=== PATIENT | male | born 1985 | race Hispanic/Latino ===

== ENCOUNTER 2021-11-17 02:59 | Emergency (ER) | payer OTHER, SELFPAY ==
[2021-11-17 03:55] LABS: Absolute Lymphocytes (CBC) 3.4 K/uL (0.7-4.9); Hematocrit 45.2 % (39.6-49.0); Lymphocytes % 42.2 % (15.3-44.8); MPV 8.6 fL (7.6-11.3); RBC Red Blood Cell Count 5.34 M/uL (4.33-5.43)
[2021-11-17 03:56] LABS: Protime INR 1.09
[2021-11-17 04:12] LABS: ALT/SGPT 54 U/L (12-78); AST/SGOT 22 U/L (15-37); Alkaline Phosphatase 87 U/L (45-117); BUN Blood Urea Nitrogen 14 mg/dL (7-18); Bicarbonate 29 mmol/L (21-32); Bilirubin Direct 0.1 mg/dL (0-0.2); Bilirubin Total 0.3 mg/dL (0.2-1.0); Glucose Level 105 mg/dL (74-106); NT PRO-BNP 10 pg/mL (<125); Potassium 3.9 mmol/L (3.5-5.1); Protein, Total 7.4 g/dL (6.4-8.2); Sodium Level 137 mmol/L (136-145)
[2021-11-17] MEDS ORDERED: ONDANSETRON 4 MG/2 ML VIAL ONE (05:51)
--- NOTE | 2021-11-17 06:26 | ER ---
Nurse's Notes [facility] Name: Vladimir Matthews Age: 36 yrs Sex: Male : 1985 Arrival Date: 11/17/2021 Time: 03:03 Bed 8 Private MD: Diagnosis: Chest pain, unspecified Presentation: 11/17 03:12 Chief complaint: Patient states: chest pain and tightness starting 3 days ago that lg3 comes and goes. thought it was acid reflux at first but now its getting worse. reports hiccups and shortness of breath when laying down. pt states that he "feels like he's loosing his hearing in both ears". Coronavirus screen: Client denies travel out of the [place] in the last 14 days. At this time, the client does not indicate any symptoms associated with coronavirus-19. Ebola Screen: No symptoms or risks identified at this time. Initial Sepsis Screen: Does the patient meet any 2 criteria? No. Patient's initial sepsis screen is negative. Does the patient have a suspected source of infection? No. Patient's initial sepsis screen is negative. Risk Assessment: Do you want to hurt yourself or someone else? Patient reports no desire to harm self or others. Onset of symptoms was November 14, 2021. 03:12 Method Of Arrival: Ambulatory lg3 03:12 Acuity: ASHLEY 3 lg3 Triage Assessment: 03:16 General: Appears in no apparent distress. uncomfortable, Behavior is calm, cooperative, lg3 anxious. Pain: Complains of pain in chest. EENT: No deficits noted. No signs and/or symptoms were reported regarding the EENT system. Neuro: No deficits noted. Level of Consciousness is awake, alert, obeys commands, Oriented to person, place, time, situation. Cardiovascular: Reports chest pain, diaphoresis, nausea, shortness of breath, vomiting, Heart tones S1 S2 Capillary refill < 3 seconds Clubbing of nail beds is absent JVD is absent Patient's skin is warm and dry. Rhythm is regular. Respiratory: No deficits noted. Airway is patent Trachea midline Respiratory effort is even, unlabored, Respiratory pattern is regular, symmetrical, Breath sounds are clear bilaterally. GI: No deficits noted. Abdomen is round non-distended, Bowel sounds present X 4 quads. Abd is soft and non tender X 4 quads. : No deficits noted. No signs and/or symptoms were reported regarding the genitourinary system. Derm: No deficits noted. No signs and/or symptoms reported regarding the dermatologic system. Skin is intact, is healthy with good turgor, Skin is diaphoretic. Musculoskeletal: No deficits noted. No signs and/or symptoms reported regarding the musculoskeletal system. Circulation, motion, and sensation intact. Range of motion: intact in all extremities. Historical: - Allergies: 03:16 Aspirin; lg3 03:16 Ibuprofen; lg3 03:16 [place]; lg3 03:16 Advil; lg3 - Home Meds: 03:16 None [Active]; lg3 - PMHx: 03:16 None; lg3 - PSHx: 03:16 left wrist; lg3 - Immunization history:: Adult Immunizations up to date, Client reports having NOT received the Covid vaccine. - Social history:: Smoking status: Patient denies any tobacco usage or history of. Patient uses alcohol, occasionally. Patient/guardian denies using street drugs. Screenin:19 Abuse screen: Denies threats or abuse. Denies injuries from another. Nutritional lg3 screening: No deficits noted. Tuberculosis screening: No symptoms or risk factors identified. Fall Risk None identified. Assessment: 03:19 Pain: Pain does not radiate. Pain began 2-3 days ago. lg3 05:50 Reassessment: pt vomited after ct scan. pt refusing any nausea meds. sm5 06:31 Reassessment: Patient and/or family updated on plan of care and expected duration. Pain sm5 level reassessed. Vital Signs: 03:12 BP 137 / 97; Pulse 77; Resp 18 S; Temp 98.2; Pulse Ox 100% on R/A; Weight 90.72 kg (R); lg3 Height 5 ft. 7 in. (170.18 cm) (R); Pain 10/10; 03:46 BP 139 / 95; Pulse 93; Resp 14; Pulse Ox 100% on R/A; st1 04:39 BP 121 / 79; Pulse 79; Resp 17; Pulse Ox 98% on R/A; sm5 06:30 BP 137 / 85; Pulse 71; Resp 19; Pulse Ox 96% on R/A; sm5 03:12 Body Mass Index 31.32 (90.72 kg, 170.18 cm) lg3 ED Course: 03:03 Patient arrived in ED. 03:11 Cristi Reyes MD is Attending Physician. kdr 03:16 Triage completed. lg3 03:16 Arm band placed on right wrist. lg3 03:28 Inserted saline lock: 20 gauge in right antecubital area, using aseptic technique. sm5 Blood collected. Patient maintains SpO2 saturation greater than 95% on room air. 03:30 Basic Metabolic Panel Sent. sm5 03:30 CBC with Diff Sent. sm5 03:30 LFT's Sent. sm5 03:30 Magnesium Sent. sm5 03:30 NT PRO-BNP Sent. sm5 03:30 PT-INR Sent. sm5 03:30 Troponin HS Sent. sm5 03:33 Patient has correct armband on for positive identification. Bed in low position. Call sm5 light in reach. Side rails up X2. compliance monitor on. Pulse ox on. NIBP on. 03:46 Leila Grier, RN is Primary Nurse. sm5 03:50 XRAY Chest (1 view) In Process Unspecified. EDMS 05:54 CT Chest W/ Con In Process Unspecified. EDMS 06:30 No provider procedures requiring assistance completed. IV discontinued, intact, sm5 bleeding controlled, No redness/swelling at site. Pressure dressing applied. Administered Medications: 06:34 Drug: Pepcid (famotidine) 20 mg Route: PO; sm5 06:34 Drug: Benadryl (diphenhydrAMINE) 25 mg Route: PO; sm5 Outcome: 06:26 Discharge ordered by . kdr 06:31 Discharged to home ambulatory. sm5 06:31 Condition: stable 06:31 Discharge instructions given to patient, Instructed on discharge instructions, follow up and referral plans. medication usage, Demonstrated understanding of instructions, follow-up care, medications, Prescriptions given X 1. 06:44 Patient left the ED. 5 Signatures: Dispatcher [employer] EDMS Cristi Reyes MD MD kdr Buffy Meneses, DEENA SHAFFER lg3 Sandra Remy Leila Grier, RN RN sm5 Avelina Sweeney, RN RN st1
--- NOTE | 2021-11-17 06:27 | EDPHYS ---
Physician Documentation [facility] Name: Vladimir Matthews Age: 36 yrs Sex: Male : 1985 Arrival Date: 11/17/2021 Time: 03:03 Bed 8 Private MD: ED Physician Cristi Reyes HPI: 11/17 05:20 This 36 yrs old Male presents to ER via Ambulatory with complaints of Chest kdr Pain. 05:20 The patient or guardian reports chest pain that is located primarily in the substernal kdr area. The pain does not radiate. Associated signs and symptoms: Pertinent positives: shortness of breath. The chest pain is described as dull, a pressure. Duration: The patient or guardian reports a single episode, that is still ongoing. Severity of pain: At its worst the pain was mild just prior to arrival, moderate. The patient has not experienced similar symptoms in the past. The patient has not recently seen a physician. Patient states he has an allergy to aspirin. 3 days ago he took Pepto-Bismol which he noted to have aspirin as an ingredient. Since then he has had a fullness in his chest substernal. He also feels like his swallowing is different though he is able to swallow solids and liquids. Historical: - Allergies: 03:16 Aspirin; lg3 03:16 Ibuprofen; lg3 03:16 [place]; lg3 03:16 Advil; lg3 - Home Meds: 03:16 None [Active]; lg3 - PMHx: 03:16 None; lg3 - PSHx: 03:16 left wrist; lg3 - Immunization history:: Adult Immunizations up to date, Client reports having NOT received the Covid vaccine. - Social history:: Smoking status: Patient denies any tobacco usage or history of. Patient uses alcohol, occasionally. Patient/guardian denies using street drugs. ROS: 05:20 Constitutional: Negative for fever, chills, and weight loss, Eyes: Negative for injury, kdr pain, redness, and discharge, Neck: Negative for injury, pain, and swelling, Cardiovascular: Negative for chest pain, palpitations, and edema, Respiratory: Negative for shortness of breath, cough, wheezing, and pleuritic chest pain, Abdomen/GI: Negative for abdominal pain, nausea, vomiting, diarrhea, and constipation, he does have a sense of esophageal fullness Back: Negative for injury and pain, : Negative for injury, bleeding, discharge, and swelling, MS/Extremity: Negative for injury and deformity, Skin: Negative for injury, rash, and discoloration, Neuro: Negative for headache, weakness, numbness, tingling, and seizure activity. Psych: Negative for depression, anxiety, suicide ideation, homicidal ideation, and hallucinations, Allergy/Immunology: Negative for hives, rash, and allergies, Endocrine: Negative for neck swelling, polydipsia, polyuria, polyphagia, and marked weight changes, Hematologic/Lymphatic: Negative for swollen nodes, abnormal bleeding, and unusual bruising. Exam: 03:23 ECG was reviewed by the Attending Physician. kdr 05:20 Constitutional: This is a well developed, well nourished patient who is awake, alert, kdr and in no acute distress. Head/Face: Normocephalic, atraumatic. Eyes: Pupils equal round and reactive to light, extra-ocular motions intact. Lids and lashes normal. Conjunctiva and sclera are non-icteric and not injected. Cornea within normal limits. Periorbital areas with no swelling, redness, or edema. Neck: Trachea midline, no thyromegaly or masses palpated, and no cervical lymphadenopathy. Supple, full range of motion without nuchal rigidity, or vertebral point tenderness. No Meningismus. Chest/axilla: Normal chest wall appearance and motion. Nontender with no deformity. No lesions are appreciated. Cardiovascular: Regular rate and rhythm with a normal S1 and S2. No gallops, murmurs, or rubs. Normal PMI, no JVD. No pulse deficits. Respiratory: Lungs have equal breath sounds bilaterally, clear to auscultation and percussion. No rales, rhonchi or wheezes noted. No increased work of breathing, no retractions or nasal flaring. Abdomen/GI: Soft, non-tender, with normal bowel sounds. No distension or tympany. No guarding or rebound. No evidence of tenderness throughout. Back: No spinal tenderness. No costovertebral tenderness. Full range of motion. Skin: Warm, dry with normal turgor. Normal color with no rashes, no lesions, and no evidence of cellulitis. MS/ Extremity: Pulses equal, no cyanosis. Neurovascular intact. Full, normal range of motion. Neuro: Awake and alert, GCS 15, oriented to person, place, time, and situation. Cranial nerves II-XII grossly intact. Motor strength 5/5 in all extremities. Sensory grossly intact. Cerebellar exam normal. Normal gait. Psych: Awake, alert, with orientation to person, place and time. Behavior, mood, and affect are within normal limits. Vital Signs: 03:12 BP 137 / 97; Pulse 77; Resp 18 S; Temp 98.2; Pulse Ox 100% on R/A; Weight 90.72 kg (R); lg3 Height 5 ft. 7 in. (170.18 cm) (R); Pain 10/10; 03:46 BP 139 / 95; Pulse 93; Resp 14; Pulse Ox 100% on R/A; st1 04:39 BP 121 / 79; Pulse 79; Resp 17; Pulse Ox 98% on R/A; sm5 06:30 BP 137 / 85; Pulse 71; Resp 19; Pulse Ox 96% on R/A; sm5 03:12 Body Mass Index 31.32 (90.72 kg, 170.18 cm) lg3 MDM: 06:26 Patient medically screened. [facility] 11/17 03:11 Order name: Basic Metabolic Panel; Complete Time: 05:03 [facility] 11/17 03:11 Order name: CBC with Diff; Complete Time: 05:03 [facility] 11/17 03:11 Order name: LFT's; Complete Time: 05:03 [facility] 11/17 03:11 Order name: Magnesium; Complete Time: 05:03 [facility] 11/17 03:11 Order name: NT PRO-BNP; Complete Time: 05:03 [facility] 11/17 03:11 Order name: PT-INR; Complete Time: 05:03 [facility] 11/17 03:11 Order name: Troponin HS; Complete Time: 05:03 [facility] 11/17 03:11 Order name: XRAY Chest (1 view) [facility] 11/17 03:11 Order name: Cardiac monitoring; Complete Time: 03:30 [facility] 11/17 03:11 Order name: EKG - Nurse/Tech; Complete Time: 03:26 [facility] 11/17 05:19 Order name: CT Chest W/ Con [facility] 11/17 03:11 Order name: IV Saline Lock; Complete Time: 03:30 [facility] 11/17 03:11 Order name: Labs collected and sent; Complete Time: 03:30 kdr 11/17 03:11 Order name: O2 Per Protocol; Complete Time: : kdr 11/17 03:11 Order name: O2 Sat Monitoring; Complete Time: kdr EC:23 Rate is 84 beats/min. Rhythm is regular, Sinus Rhythm with No ectopy. QRS [place] is kdr Normal. [place] interval is normal. QRS interval is normal. QT interval is normal. Clinical impression: NSR w/ Non-specific ST/T Changes. Administered Medications: 06:34 Drug: Pepcid (famotidine) 20 mg Route: PO; sm5 06:34 Drug: Benadryl (diphenhydrAMINE) 25 mg Route: PO; sm5 Disposition Summary: 11/17/21 06:26 Discharge Ordered Location: Home kdr Problem: new kdr Symptoms: have improved kdr Condition: Stable kdr Diagnosis - Chest pain, unspecified kdr Followup: kdr - With: Private Physician - When: 2 - 3 days - Reason: If symptoms return, Further diagnostic work-up, Recheck today's complaints, Continuance of care, Re-evaluation by your physician Discharge Instructions: - Discharge Summary Sheet kdr - Nonspecific Chest Pain, Adult, [id number] kdr Forms: - Medication Reconciliation Form kdr - Thank You Letter kdr Prescriptions: - Pepcid 20 mg Oral Tablet - take 1 tablet by ORAL route every 12 hours for 10 days; 20 tablet; Refills: 0, kdr Product Selection Permitted Signatures: Dispatcher [employer] Cristi Fragoso MD MD kdr Buffy Meneses RN RN lg3 Leila Grier RN RN sm5 Avelina Sweeney, RN RN st1
[2021-11-17] MEDS ORDERED: FAMOTIDINE 20 MG TAB ONE (06:36)
[2021-11-17] MEDS ORDERED: DIPHENHYDRAMINE 25 MG TAB/CAP ONE (06:36)
[2021-11-17 06:56] VITALS: TEMP 98.2
[2021-11-17 07:00] VITALS: BP 137/85; O2SAT 96
--- NOTE | 2021-11-17 08:39 | RAD REPORT ---
EXAM DESCRIPTION: RAD - Chest Single View - 11/17/2021 3:50 am CLINICAL HISTORY: CHEST PAIN Chest pain. COMPARISON: No comparisons FINDINGS: Portable technique limits examination quality. The lungs are grossly clear. The heart is normal in size. No displaced fractures. IMPRESSION: No acute intrathoracic process suspected.
--- NOTE | 2021-11-17 09:41 | RAD REPORT ---
EXAM DESCRIPTION: CT CHEST WITH IV CONTRAST TECHNIQUE: Computerized axial tomography of the chest was performed during the IV injection of iodin ated nonionic contrast. This exam was performed according to our department optimization program whic h includes automated exposure control, adjustment of the mA and/or kV according to patient size, and/ or use of iterative reconstruction technique. CLINICAL HISTORY: Chest pain COMPARISON: None. FINDINGS: Heart and pericardium: Heart is normal in size. No pericardial effusion or thickening. Thoracic aorta: Normal. Pulmonary vasculature: Limited evaluation of the pulmonary arteries due to phase of contrast enhancem ent. No large embolus is seen in the main or right and left pulmonary arteries. Lymph nodes: No enlarged thoracic lymph nodes. Lungs: No infiltrate. There is a 2 mm pulmonary nodule in the peripheral right lower lobe, axial im age #32 of the lung windows, no further workup is required. Pleural space: No effusion, thickening, or pneumothorax. Musculoskeletal structures: No significant abnormality. Upper abdominal structures: Small hiatal hernia. IMPRESSION: 1. Limited evaluation of the pulmonary arteries due to phase of contrast enhancement. No large embolus is seen in the main or right and left pulmonary arteries. However there is limited e valuation of the mid to distal pulmonary arterial branches 2. Small hiatal hernia. 3. No pulmonary infiltrate Electronically signed by: Buffy Venegas MD 11/17/2021 6:08 AM MD ALLERGY IMMUNOLOGY Due to temporary technical issues with the PACS/Fluency reporting system, reports are being signed by the in house radiologists without review as a courtesy to insure prompt reporting. The interpreting radiologist is fully responsible for the content of the report.
== END 2021-11-17 06:44 | disposition home or self-care (01) ==
LOC: ER 02:59
DX: R07.9 Chest pain, unspecified (principal); Z88.6 Allergy status to analgesic agent; Z88.8 Allergy status to other drugs, medicaments and biological substances
CPT/HCPCS: 36415; 71045; 71260; 80048; 80076; 83735; 83880; 84484; 85025; 85610; 99285; J2405; Q9967

== ENCOUNTER 2022-02-01 05:33 | Emergency (ER) | payer SELFPAY ==
[2022-02-01 06:12] LABS: Hematocrit 45.2 % (39.6-49.0); MPV 8.6 fL (7.6-11.3); RBC Red Blood Cell Count 5.29 M/uL (4.33-5.43)
[2022-02-01 06:41] LABS: ALT/SGPT 52 U/L (12-78); AST/SGOT 22 U/L (15-37); Albumin 4.2 g/dL (3.4-5.0); Alkaline Phosphatase 83 U/L (45-117); BUN Blood Urea Nitrogen 10 mg/dL (7-18); Bicarbonate 23 mmol/L (21-32); Bilirubin Total 0.6 mg/dL (0.2-1.0); Glucose Level 114 mg/dL (74-106); Lipase 79 U/L (73-393); Potassium 3.7 mmol/L (3.5-5.1); Protein, Total 7.4 g/dL (6.4-8.2); Sodium Level 137 mmol/L (136-145)
[2022-02-01 07:43] LABS: Urine Blood Negative (Negative); Urine Glucose Negative (Negative); Urine Protein Negative (Negative); Urine Specific Gravity 1.025 (1.005-1.030)
[2022-02-01] MEDS ORDERED: FAMOTIDINE 20 MG/2 ML VIAL IV ONE (09:00)
[2022-02-01] MEDS ORDERED: MORPHINE 4 MG/ML SYR ONE (09:00)
[2022-02-01] MEDS ORDERED: NA CHLORIDE 0.9% 1,000 ML ONE (09:00)
--- NOTE | 2022-02-01 09:14 | RAD REPORT ---
EXAM DESCRIPTION: CTAbdomen Pelvis Wo Contrast - 02/01/2022 9:01 am CLINICAL HISTORY: Abdominal pain, acute, nonlocalized COMPARISON: No comparisons TECHNIQUE: CT of the abdomen and pelvis was performed. All CT scans are performed using dose optimization technique as appropriate and may include automated exposure control or mA/KV adjustment according to patient size. FINDINGS: Lower chest: No acute abnormality. Liver: No acute abnormality or suspicious lesions. Biliary: No biliary ductal dilatation. Stomach: No significant focal abnormality. Duodenum: No significant focal abnormality. Pancreas: No significant abnormality. Spleen: No significant abnormality. Adrenal: No suspicious lesions. Kidney/ureter: No hydronephrosis. No renal calculi. Retroperitoneum: No retroperitoneal adenopathy. Vascular: No aneurysm. Bowel: No significant focal abnormality. Normal appendix. Peritoneum: No ascites or free air. Bladder: Grossly unremarkable. Reproductive: No adnexal masses. Bones: No acute fracture. Other: n/a IMPRESSION: No acute intra-abdominal or pelvic finding. Normal appendix.
--- NOTE | 2022-02-01 09:41 | RAD REPORT ---
EXAM DESCRIPTION: RAD - Abdomen 1 View (KUB) - 02/01/2022 9:29 am CLINICAL HISTORY: ABD PAIN COMPARISON: No comparisons FINDINGS: Nonobstructive bowel gas pattern. No acute osseous abnormality.Visualized lungs are unrema rkable.No abnormal calcifications. IMPRESSION: Nonobstructive bowel gas pattern.
--- NOTE | 2022-02-01 09:46 | EDPHYS ---
Physician Documentation [facility] Name: Vladimir Matthews Age: 36 yrs Sex: Male : 1985 Arrival Date: 02/01/2022 Time: 05:37 Bed 19 Private MD: MARJORIE Physician Chavez Cummings HPI: 02/01 08:46 This 36 yrs old Male presents to ER via Ambulatory with complaints of cameron Abdominal Pain. 08:46 The patient presents with abdominal pain in the upper abdomen, in the lower abdomen, cameron abdominal distention in the upper abdomen, in the lower abdomen. Onset: The symptoms/episode began/occurred 2 day(s) ago. The patient presents to the emergency department with nausea, vomiting, that is intermittent, described as bilious. Onset: The symptoms/episode began/occurred 2 day(s) ago. Possible causes: unknown. The symptoms are aggravated by nothing. The symptoms are alleviated by remaining still. The symptoms do not radiate. Associated signs and symptoms: Pertinent positives: abdominal pain, nausea, vomiting. Associated signs and symptoms: none. Modifying factors: The symptoms are alleviated by nothing, the symptoms are aggravated by movement. Historical: - Allergies: 05:50 Advil; bb 05:50 [place]; bb 05:50 Aspirin; bb 05:50 Ibuprofen; bb - Home Meds: 05:50 None [Active]; bb - PMHx: 05:50 None; bb - PSHx: 05:50 Left wrist; bb - Immunization history:: Client reports having NOT received the Covid vaccine. - Social history:: Smoking status: Patient denies any tobacco usage or history of. - Family history:: not pertinent. ROS: 08:46 Constitutional: Negative for fever, chills, and weight loss, Eyes: Negative for injury, cameron pain, redness, and discharge, ENT: Negative for injury, pain, and discharge, Neck: Negative for injury, pain, and swelling, Cardiovascular: Negative for chest pain, palpitations, and edema, Respiratory: Negative for shortness of breath, cough, wheezing, and pleuritic chest pain, Abdomen/GI: Negative for abdominal pain, nausea, vomiting, diarrhea, and constipation, Back: Negative for injury and pain, : Negative for injury, bleeding, discharge, and swelling, MS/Extremity: Negative for injury and deformity, Skin: Negative for injury, rash, and discoloration, Neuro: Negative for headache, weakness, numbness, tingling, and seizure, Psych: Negative for depression, anxiety, suicide ideation, homicidal ideation, and hallucinations, Allergy/Immunology: Negative for hives, rash, and allergies, Endocrine: Negative for neck swelling, polydipsia, polyuria, polyphagia, and marked weight changes, Hematologic/Lymphatic: Negative for swollen nodes, abnormal bleeding, and unusual bruising. 08:46 Abdomen/GI: Positive for abdominal pain, nausea and vomiting, of the umbilical area, right upper quadrant and left upper quadrant. Exam: 08:46 Constitutional: This is a well developed, well nourished patient who is awake, alert, cameron and in no acute distress. Head/Face: Normocephalic, atraumatic. Eyes: Pupils equal round and reactive to light, extra-ocular motions intact. Lids and lashes normal. Conjunctiva and sclera are non-icteric and not injected. Cornea within normal limits. Periorbital areas with no swelling, redness, or edema. ENT: Nares patent. No nasal discharge, no septal abnormalities noted. Tympanic membranes are normal and external auditory canals are clear. Oropharynx with no redness, swelling, or masses, exudates, or evidence of obstruction, uvula midline. Mucous membranes moist. Neck: Trachea midline, no thyromegaly or masses palpated, and no cervical lymphadenopathy. Supple, full range of motion without nuchal rigidity, or vertebral point tenderness. No Meningismus. Chest/axilla: Normal chest wall appearance and motion. Nontender with no deformity. No lesions are appreciated. Cardiovascular: Regular rate and rhythm with a normal S1 and S2. No gallops, murmurs, or rubs. Normal PMI, no JVD. No pulse deficits. Respiratory: Lungs have equal breath sounds bilaterally, clear to auscultation and percussion. No rales, rhonchi or wheezes noted. No increased work of breathing, no retractions or nasal flaring. Back: No spinal tenderness. No costovertebral tenderness. Full range of motion. Male : Normal genitalia with no discharge or lesions. Skin: Warm, dry with normal turgor. Normal color with no rashes, no lesions, and no evidence of cellulitis. MS/ Extremity: Pulses equal, no cyanosis. Neurovascular intact. Full, normal range of motion. Neuro: Awake and alert, GCS 15, oriented to person, place, time, and situation. Cranial nerves II-XII grossly intact. Motor strength 5/5 in all extremities. Sensory grossly intact. Cerebellar exam normal. Normal gait. Psych: Awake, alert, with orientation to person, place and time. Behavior, mood, and affect are within normal limits. 08:46 Abdomen/GI: Inspection: distension, that is mild, Bowel sounds: active, all quadrants, Palpation: moderate abdominal tenderness, in the umbilical area, right upper quadrant and left upper quadrant, Liver: no appreciated palpable abnormalities, Hernia: not appreciated. Vital Signs: 05:48 BP 142 / 94; Pulse 59; Resp 18 S; Temp 98.1(O); Pulse Ox 97% on R/A; Weight 90.72 kg bb (R); Height 5 ft. 7 in. (170.18 cm) (R); Pain 10/10; 09:32 BP 139 / 96; Pulse 68; Resp 18; Pulse Ox 99% on R/A; segal 05:48 Body Mass Index 31.32 (90.72 kg, 170.18 cm) bb MDM: 07:11 Patient medically screened. cameron 08:48 Differential diagnosis: Nonspecific abd pain, gastritis, cholecystitis, pancreatitis, cameron diverticulitis, viral gastroenteritis, gastroenteritis, appendicitis, bowel obstruction, cholecystitis, Cholelithiasis, diverticulitis, gastritis, non-specific abd pain, pancreatitis, Peptic Ulcer Disease, Perf. Duodenal Ulcer, Pyelonephritis, Ureterolithiasis, urinary tract infection. Data reviewed: vital signs, nurses notes, lab test result(s), radiologic studies, CT scan. Data interpreted: educational consultant: rate is 59 beats/min, rhythm is regular, Pulse oximetry: on room air is 97 %. Test interpretation: by ED physician or midlevel provider: ECG, plain radiologic studies. Counseling: I had a detailed discussion with the patient and/or guardian regarding: the historical points, exam findings, and any diagnostic results supporting the discharge/admit diagnosis, lab results, radiology results. 02/01 05:52 Order name: CBC with Diff; Complete Time: 07:17 bb 02/01 05:52 Order name: CMP; Complete Time: 07:17 bb 02/01 05:52 Order name: Lipase; Complete Time: 07:17 bb 02/01 07:18 Order name: Abdomen 1 View (KUB) XRAY; Complete Time: 09:43 cameron 02/01 07:43 Order name: Urine Dipstick-Ancillary; Complete Time: 08:45 EDMS 02/01 08:45 Order name: SARS-COV-2 RT PCR (Document "Date of Onset" if Symptomatic) [facility] 02/01 05:52 Order name: IV Saline Lock; Complete Time: 05:57 bb 02/01 05:52 Order name: Labs collected and sent; Complete Time: 05:57 bb 02/01 07:18 Order name: Urine Dipstick-Ancillary (obtain specimen); Complete Time: 07:43 cameron 02/01 08:54 Order name: CT Abd/Pelvis - Without Contrast; Complete Time: 09:43 [facility] Administered Medications: 09:05 Drug: NS 0.9% 1000 ml Route: IV; Rate: 1 bolus; Site: right antecubital; segal 09:05 Drug: Pepcid (famotidine) 20 mg Route: IVP; Site: right antecubital; segal 09:32 Follow up: Response: No adverse reaction segal 09:05 Drug: morphine 4 mg Route: IVP; Site: right antecubital; segal 09:32 Follow up: Response: No adverse reaction segal Disposition Summary: 02/01/22 09:46 Discharge Ordered Location: Home cameron Problem: new cameron Symptoms: have improved cameron Condition: Stable cameron Diagnosis - Abdominal pain, Generalized cameron - Vomiting cameron Followup: cameron - With: Private Physician - When: 2 - 3 days - Reason: Recheck today's complaints, Continuance of care, Re-evaluation by your physician Followup: cameron - With: Ronaldo Guaman MD - When: 2 - 3 days - Reason: Recheck today's complaints, Re-evaluation by your physician Discharge Instructions: - Discharge Summary Sheet cameron - Abdominal Pain, Adult cameron - Nausea and Vomiting, Adult cameron - Nausea and Vomiting, Adult, [id number] cameron - Abdominal Pain, Adult, [id number] cameron Forms: - Medication Reconciliation Form cameron - Thank You Letter cameron - Antibiotic Education cameron - Prescription Opioid Use cameron Prescriptions: - Pepcid 20 mg Oral Tablet - take 1 tablet by ORAL route every 12 hours for 15 days; 30 tablet; Refills: 0, cameron Product Selection Permitted - Zofran 4 mg Oral Tablet - take 1 tablet by ORAL route every 12 hours As needed; 20 tablet; Refills: 0, cameron Product Selection Permitted - dicyclomine 20 mg Oral Tablet - take 1 tablet by ORAL route 4 times per day; 28 tablet; Refills: 0, Product [facility] Selection Permitted Signatures: Dispatcher [employer] EDMS Chavez Cummings MD MD cha Ballard, Brenda, RN RN bb Au-Stager, Heather, RN RN segal Corrections: (The following items were deleted from the chart) 09:01 08:45 Abdomen Pelvis W [id number].BRZ ordered. EDMS EDMS
--- NOTE | 2022-02-01 09:46 | ER ---
Nurse's Notes [facility] Name: Vladimir Matthews Age: 36 yrs Sex: Male : 1985 Arrival Date: 02/01/2022 Time: 05:37 Bed 19 Private MD: Diagnosis: Abdominal pain, Generalized;Vomiting Presentation: 02/01 05:48 Chief complaint: Patient states: he is having generalized abdominal pain for 2 days has bb not been able to sleep denies vomiting or diarrhea, denies fever, when the pain worsens he gets a hot flash. Coronavirus screen: At this time, the client does not indicate any symptoms associated with coronavirus-19. Ebola Screen: No symptoms or risks identified at this time. Initial Sepsis Screen: Does the patient meet any 2 criteria? No. Patient's initial sepsis screen is negative. Does the patient have a suspected source of infection? No. Patient's initial sepsis screen is negative. Risk Assessment: Do you want to hurt yourself or someone else? Patient reports no desire to harm self or others. Onset of symptoms was January 30, 2022. 05:48 Method Of Arrival: Ambulatory bb 05:48 Acuity: ASHLEY 3 bb Triage Assessment: 05:50 General: Appears uncomfortable, ill, Behavior is cooperative, anxious. Pain: Complains bb of pain in abdomen Pain currently is 10 out of 10 on a pain scale. Neuro: Level of Consciousness is awake, alert, obeys commands, Oriented to person, place, time, situation. Cardiovascular: Capillary refill < 3 seconds. Respiratory: Respiratory effort is unlabored, Respiratory pattern is regular. GI: Abdomen is distended, Bowel sounds present X 4 quads. Abdomen is tender to palpation X 4 quads. Reports lower abdominal pain. Derm: Skin is clammy, Skin is normal, Skin temperature is warm. Musculoskeletal: Circulation, motion, and sensation intact. Historical: - Allergies: 05:50 Advil; bb 05:50 [place]; bb 05:50 Aspirin; bb 05:50 Ibuprofen; bb - Home Meds: 05:50 None [Active]; bb - PMHx: 05:50 None; bb - PSHx: 05:50 Left wrist; bb - Immunization history:: Client reports having NOT received the Covid vaccine. - Social history:: Smoking status: Patient denies any tobacco usage or history of. - Family history:: not pertinent. Screenin:44 Abuse screen: Denies threats or abuse. Denies injuries from another. Nutritional kd3 screening: No deficits noted. Tuberculosis screening: No symptoms or risk factors identified. Fall Risk IV access (20 points). Assessment: 06:46 General: Appears uncomfortable, Behavior is calm, cooperative. Neuro: Level of kd3 Consciousness is awake, alert, obeys commands, Oriented to person, place, time, situation. Cardiovascular: Patient's skin is warm and dry. Respiratory: Airway is patent Trachea midline Respiratory effort is even, unlabored, Respiratory pattern is regular, symmetrical. GI: Abdomen is non-distended, Bowel sounds present X 4 quads. : No signs and/or symptoms were reported regarding the genitourinary system. EENT: No deficits noted. Vital Signs: 05:48 BP 142 / 94; Pulse 59; Resp 18 S; Temp 98.1(O); Pulse Ox 97% on R/A; Weight 90.72 kg bb (R); Height 5 ft. 7 in. (170.18 cm) (R); Pain 10/10; 09:32 BP 139 / 96; Pulse 68; Resp 18; Pulse Ox 99% on R/A; segal 05:48 Body Mass Index 31.32 (90.72 kg, 170.18 cm) bb ED Course: 05:37 Patient arrived in ED. kz 05:50 Triage completed. bb 05:50 Arm band placed on. bb 05:57 Initial lab(s) drawn, by ct, sent to lab. Inserted saline lock: 20 gauge in right bb antecubital area, using aseptic technique. Blood collected. 06:41 Tung Venegas MD is Attending Physician. 7 06:44 Maite Christian, RN is Primary Nurse. kd3 06:44 Patient has correct armband on for positive identification. kd3 07:11 Chavez Cummings MD is Attending Physician. cameron 07:43 Primary Nurse role handed off by Maite Christian, RN bd 08:30 Padmaja Lora, DEENA is Primary Nurse. segal 09:03 CT Abd/Pelvis - Without Contrast In Process Unspecified. EDMS 09:31 Abdomen 1 View (KUB) XRAY In Process Unspecified. EDMS 09:32 SARS-COV-2 RT PCR (Document "Date of Onset" if Symptomatic) Sent. segal 09:43 Ronaldo Guaman MD is Referral Physician. [facility] 11:10 No provider procedures requiring assistance completed. IV discontinued, intact, segal Pressure dressing applied. Administered Medications: 09:05 Drug: NS 0.9% 1000 ml Route: IV; Rate: 1 bolus; Site: right antecubital; segal 09:05 Drug: Pepcid (famotidine) 20 mg Route: IVP; Site: right antecubital; segal 09:32 Follow up: Response: No adverse reaction segal 09:05 Drug: morphine 4 mg Route: IVP; Site: right antecubital; segal 09:32 Follow up: Response: No adverse reaction segal Outcome: 09:46 Discharge ordered by . [facility] 11:10 Discharged to home ambulatory. segal 11:10 Condition: good 11:10 Discharge instructions given to patient, Prescriptions given X 3. 11:10 Patient left the ED. segal Signatures: Dispatcher [employer] EDNM Tita Loya Corey, MD MD cha Ballard, Brenda, RN RN Tung Mills MD MD [id number] Maite Christian RN RN kd3 Padmaja Lora RN RN ha Zapata, Kelly kz
[2022-02-01 11:21] VITALS: TEMP 98.1
[2022-02-01 11:22] VITALS: BP 139/96; O2SAT 99
== END 2022-02-01 11:10 | disposition home or self-care (01) ==
LOC: ER 05:33
DX: R10.84 Generalized abdominal pain (principal); R11.10 Vomiting, unspecified; Z20.822 Contact with and (suspected) exposure to COVID-19; Z88.6 Allergy status to analgesic agent; Z88.8 Allergy status to other drugs, medicaments and biological substances
CPT/HCPCS: 36415; 74018; 74176; 80053; 81003; 83690; 85025; 96374; 96375; 99284; J3490; J7030; U0003

== ENCOUNTER 2022-02-01 18:08 | Inpatient (IN) | payer SELFPAY ==
[2022-02-01] MEDS ORDERED: HYDROMORPHONE HCL 1 MG/ML INJ ONE ×2 (18:57→21:05)
[2022-02-01] MEDS ORDERED: PIPERACIL/TAZO 3.375 GM VIAL IV ONE (18:58)
[2022-02-01] MEDS ORDERED: NA CHLORIDE 0.9% 100 ML IV ONE (18:59)
--- NOTE | 2022-02-01 19:02 | ER ---
Nurse's Notes [facility] Name: Vladimir Matthews Age: 36 yrs Sex: Male : 1985 Arrival Date: 02/01/2022 Time: 18:08 Bed 17 Private MD: Diagnosis: Abdominal tenderness;Vomiting Presentation: 02/01 18:26 Chief complaint: Patient states: mid abd pain, started 3 days ago , was seen here this iw morning and had CT and was diagnosed with generalized abd pain , pain started again after eating [employer]. Coronavirus screen: At this time, the client does not indicate any symptoms associated with coronavirus-19. Ebola Screen: Patient negative for fever greater than or equal to 101.5 degrees Fahrenheit, and additional compatible Ebola Virus Disease symptoms Patient denies exposure to infectious person. Patient denies travel to an Ebola-affected area in the 21 days before illness onset. No symptoms or risks identified at this time. Initial Sepsis Screen: Does the patient meet any 2 criteria? No. Patient's initial sepsis screen is negative. Does the patient have a suspected source of infection? No. Patient's initial sepsis screen is negative. Risk Assessment: Do you want to hurt yourself or someone else? Patient reports no desire to harm self or others. Onset of symptoms was January 29, 2022. 18:26 Method Of Arrival: Ambulatory iw 18:26 Acuity: ASHLEY 3 iw Triage Assessment: 18:45 General: Appears uncomfortable, Behavior is anxious. segal Historical: - Allergies: 18:29 Advil; iw 18:29 [place]; iw 18:29 Aspirin; iw 18:29 Ibuprofen; iw - Home Meds: 18:29 None [Active]; iw - PMHx: 18:29 None; iw - PSHx: 18:29 Left wrist; iw - Social history:: Smoking status: Patient denies any tobacco usage or history of. - Family history:: not pertinent. Screenin:44 Abuse screen: Denies threats or abuse. Denies injuries from another. Nutritional segal screening: No deficits noted. Tuberculosis screening: No symptoms or risk factors identified. Fall Risk None identified. Assessment: 18:44 Pain: Complains of pain in abdomen. GI: Bowel sounds present X 4 quads. Abd is soft segal Abdomen has rebound tenderness in right upper quadrant Reports Pain is 10 out of 10 on a pain scale. 19:00 Reassessment: Patient and/or family updated on plan of care and expected duration. Pain ll3 level reassessed. Patient is alert, oriented x 3, equal unlabored respirations, skin warm/dry/pink. 20:30 Reassessment: Patient and/or family updated on plan of care and expected duration. Pain ll3 level reassessed. Patient is alert, oriented x 3, equal unlabored respirations, skin warm/dry/pink. C/O abdominal pain 07/05, ERP notified. 02/02 14:15 Reassessment: pt spoke with Dr. Guaman and was told to F/U in his office. Dr. Guaman segal verbalized to d/c pt home. pt waited 2 hr for d/c papers and no longer wanted to wait. pt stated that he can come back for paperwork if needed. Vital Signs: 02/01 18:26 BP 158 / 86; Pulse 51; Resp 16; Temp 99.1; Pulse Ox 98% on R/A; Weight 90.72 kg; Height iw 5 ft. 7 in. (170.18 cm); Pain 10/10; 19:30 BP 144 / 102; Pulse 49; Resp 16; Pulse Ox 97% on R/A; ll3 20:30 BP 183 / 94; Pulse 52; Resp 16; Pulse Ox 97% on R/A; ll3 18:26 Body Mass Index 31.32 (90.72 kg, 170.18 cm) iw ED Course: 18:08 Patient arrived in ED. as 18:29 Triage completed. iw 18:29 Arm band placed on. iw 18:31 Chavez Cummings MD is Attending Physician. cameron 18:43 Padmaja Lora, DEENA is Primary Nurse. segal 18:44 Patient has correct armband on for positive identification. Bed in low position. segal 18:44 No provider procedures requiring assistance completed. segal 18:59 Ronaldo Guaman MD is Hospitalizing Provider. cameron 19:03 Lactate Sent. segal 19:04 Inserted saline lock: 20 gauge in right antecubital area, using aseptic technique. segal 19:47 Abdomen Limited US In Process Unspecified. EDMS 21:07 COVID-19 SARS RT PCR (Document "Date of Onset" if Symptomatic) Sent. ll3 21:10 Patient admitted, IV remains in place. ll3 05 14:18 IV discontinued, intact, Pressure dressing applied. segal Administered Medications: 02/01 19:03 Drug: Dilaudid (HYDROmorphone) 1 mg Route: IVP; Site: right antecubital; segal 21:08 Follow up: Response: No adverse reaction ll3 19:30 Drug: Zosyn (piperacillin-tazobactam) 3.375 grams Route: IVPB; Infused Over: 60 mins; ll3 Site: left antecubital; 21:08 Follow up: Response: No adverse reaction; IV Status: Completed infusion; IV Intake: ll3 100ml 19:38 Drug: ProTONIX (pantoprazole) 40 mg Route: IVP; Site: left antecubital; ll3 21:07 Follow up: Response: No adverse reaction ll3 20:12 Drug: NS 0.9% 1000 ml Route: IV; Rate: 1 bolus; Site: left antecubital; ll3 22:00 Follow up: Response: No adverse reaction; IV Status: Completed infusion; IV Intake: ll3 1000ml 20:13 Not Given (Patient Refused): Pepcid (famotidine) 20 mg IVP once; dilute with 10 mL 0.9% ll3 NaCl; give over 2 minutes 20:13 Not Given (Patient Refused): Zofran (Ondansetron) 4 mg IVP once; over 2 minutes ll3 21:03 Drug: Dilaudid (HYDROmorphone) 1 mg Route: IVP; Site: left antecubital; ll3 21:28 Follow up: Response: No adverse reaction ll3 21:28 Drug: NS 0.9% 1000 ml Route: IV; Rate: 125 ml/hr; Site: left antecubital; ll3 Intake: 21:08 IV: 100ml; Total: 100ml. ll3 22:00 IV: 1000ml; Total: 1100ml. ll3 Outcome: 19:00 Decision to Hospitalize by Provider. cameron 21:10 Admitted to ER Hold. Please see [facility] for further documentation. ll3 21:10 Condition: stable 21:10 Instructed on the need for admit, Demonstrated understanding of instructions. 02/02 14:18 Discharged to home ambulatory. segal Condition: good Discharge instructions given to patient. 14:18 Patient left the ED. segal Signatures: Dispatcher [employer] Chavez Marcus MD MD cha Martinez, Amelia as Williams, Irene, RN RN iw Loubet, Lynsea, RN RN ll3 Padmaja Lora RN RN segal
--- NOTE | 2022-02-01 19:02 | EDPHYS ---
Physician Documentation [facility] Name: Vladimir Matthews Age: 36 yrs Sex: Male : 1985 Arrival Date: 02/01/2022 Time: 18:08 Bed 17 Private MD: ED Physician Chavez Cummings HPI: 02/01 18:48 This 36 yrs old Male presents to ER via Ambulatory with complaints of cameron Abdominal Pain. 18:48 The patient presents with abdominal pain in the upper abdomen, abdominal distention in cameron the upper abdomen, in the lower abdomen. Onset: The symptoms/episode began/occurred 3 day(s) ago. The symptoms do not radiate. Associated signs and symptoms: Pertinent positives: nausea and vomiting. The symptoms are described as constant, crampy. Modifying factors: The symptoms are alleviated by antacids, the symptoms are aggravated by nothing. Severity of pain: At its worst the pain was moderate in the emergency department the pain is unchanged. The patient has not experienced similar symptoms in the past. Historical: - Allergies: 18:29 Advil; iw 18:29 Katie-[place]; iw 18:29 Aspirin; iw 18:29 Ibuprofen; iw - Home Meds: 18:29 None [Active]; iw - PMHx: 18:29 None; iw - PSHx: 18:29 Left wrist; iw - Social history:: Smoking status: Patient denies any tobacco usage or history of. - Family history:: not pertinent. ROS: 18:48 Constitutional: Negative for fever, chills, and weight loss, Eyes: Negative for injury, cameron pain, redness, and discharge, ENT: Negative for injury, pain, and discharge, Neck: Negative for injury, pain, and swelling, Cardiovascular: Negative for chest pain, palpitations, and edema, Respiratory: Negative for shortness of breath, cough, wheezing, and pleuritic chest pain, Back: Negative for injury and pain, : Negative for injury, bleeding, discharge, and swelling, MS/Extremity: Negative for injury and deformity, Skin: Negative for injury, rash, and discoloration, Neuro: Negative for headache, weakness, numbness, tingling, and seizure, Psych: Negative for depression, anxiety, suicide ideation, homicidal ideation, and hallucinations, Allergy/Immunology: Negative for hives, rash, and allergies, Endocrine: Negative for neck swelling, polydipsia, polyuria, polyphagia, and marked weight changes, Hematologic/Lymphatic: Negative for swollen nodes, abnormal bleeding, and unusual bruising. 18:48 Abdomen/GI: Positive for abdominal pain, nausea and vomiting, of the right upper quadrant and left upper quadrant. Exam: 18:48 Constitutional: This is a well developed, well nourished patient who is awake, alert, cameron and in no acute distress. Head/Face: Normocephalic, atraumatic. Eyes: Pupils equal round and reactive to light, extra-ocular motions intact. Lids and lashes normal. Conjunctiva and sclera are non-icteric and not injected. Cornea within normal limits. Periorbital areas with no swelling, redness, or edema. ENT: Nares patent. No nasal discharge, no septal abnormalities noted. Tympanic membranes are normal and external auditory canals are clear. Oropharynx with no redness, swelling, or masses, exudates, or evidence of obstruction, uvula midline. Mucous membranes moist. Neck: Trachea midline, no thyromegaly or masses palpated, and no cervical lymphadenopathy. Supple, full range of motion without nuchal rigidity, or vertebral point tenderness. No Meningismus. Chest/axilla: Normal chest wall appearance and motion. Nontender with no deformity. No lesions are appreciated. Cardiovascular: Regular rate and rhythm with a normal S1 and S2. No gallops, murmurs, or rubs. Normal PMI, no JVD. No pulse deficits. Respiratory: Lungs have equal breath sounds bilaterally, clear to auscultation and percussion. No rales, rhonchi or wheezes noted. No increased work of breathing, no retractions or nasal flaring. Back: No spinal tenderness. No costovertebral tenderness. Full range of motion. Male : Normal genitalia with no discharge or lesions. Skin: Warm, dry with normal turgor. Normal color with no rashes, no lesions, and no evidence of cellulitis. MS/ Extremity: Pulses equal, no cyanosis. Neurovascular intact. Full, normal range of motion. Neuro: Awake and alert, GCS 15, oriented to person, place, time, and situation. Cranial nerves II-XII grossly intact. Motor strength 5/5 in all extremities. Sensory grossly intact. Cerebellar exam normal. Normal gait. Psych: Awake, alert, with orientation to person, place and time. Behavior, mood, and affect are within normal limits. 18:48 Abdomen/GI: Inspection: abdomen appears normal, Bowel sounds: diminished, Palpation: moderate abdominal tenderness, in the right upper quadrant and left upper quadrant, Liver: tenderness, that is mild, Hernia: not appreciated. Vital Signs: 18:26 BP 158 / 86; Pulse 51; Resp 16; Temp 99.1; Pulse Ox 98% on R/A; Weight 90.72 kg; Height iw 5 ft. 7 in. (170.18 cm); Pain 10/10; 19:30 BP 144 / 102; Pulse 49; Resp 16; Pulse Ox 97% on R/A; ll3 20:30 BP 183 / 94; Pulse 52; Resp 16; Pulse Ox 97% on R/A; ll3 18:26 Body Mass Index 31.32 (90.72 kg, 170.18 cm) iw MDM: 18:31 Patient medically screened. cameron 18:40 Patient medically screened. cameron 18:52 Differential diagnosis: appendicitis, bowel obstruction, cholecystitis, Cholelithiasis, cameron diverticulitis, gastritis, non-specific abd pain, pancreatitis, Peptic Ulcer Disease, Ureterolithiasis, urinary tract infection. Data reviewed: vital signs, nurses notes, lab test result(s), EKG, radiologic studies, CT scan, plain films. 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 Test interpretation: by ED physician or midlevel provider: ECG, plain radiologic studies. Counseling: I had a detailed discussion with the patient and/or guardian regarding: the historical points, exam findings, and any diagnostic results supporting the discharge/admit diagnosis, lab results, radiology results, the need for further work-up and treatment in the hospital. 02/01 18:48 Order name: CBC with Diff; Complete Time: 20:49 [facility] 02/01 18:48 Order name: CMP; Complete Time: 20:49 [facility] 02/01 18:48 Order name: Lipase; Complete Time: 20:49 [facility] 02/01 18:48 Order name: UDS; Complete Time: 20:49 [facility] 02/01 18:53 Order name: Lactate; Complete Time: 20:49 [facility] 02/01 19:03 Order name: COVID-19 SARS RT PCR (Document "Date of Onset" if Symptomatic) as6 02/01 18:48 Order name: Abdomen Limited US; Complete Time: 20:49 [facility] 02/01 20:27 Order name: Urine Dipstick-Ancillary; Complete Time: 20:49 EDMS 02/01 21:27 Order name: SARS-COV-2 RT PCR; Complete Time: 21:30 EDMS 02/02 03:40 Order name: CBC with Automated Diff EDMS 02/02 04:00 Order name: Basic Metabolic Panel EDMS 02/02 04:00 Order name: Liver (Hepatic) Function EDMS 02/02 04:00 Order name: Lipase EDMS 02/01 18:48 Order name: IV Saline Lock; Complete Time: 19:03 [facility] 02/01 18:48 Order name: Labs collected and sent; Complete Time: 19:03 [facility] 02/01 18:52 Order name: EKG; Complete Time: 18:52 [facility] 02/01 18:52 Order name: EKG - Nurse/Tech; Complete Time: 21:28 [facility] 02/01 19:07 Order name: Abdomen ; Complete Time: 21:30 EDMS Administered Medications: 19:03 Drug: Dilaudid (HYDROmorphone) 1 mg Route: IVP; Site: right antecubital; 21:08 Follow up: Response: No adverse reaction ll3 19:30 Drug: Zosyn (piperacillin-tazobactam) 3.375 grams Route: IVPB; Infused Over: 60 mins; ll3 Site: left antecubital; 21:08 Follow up: Response: No adverse reaction; IV Status: Completed infusion; IV Intake: ll3 100ml 19:38 Drug: ProTONIX (pantoprazole) 40 mg Route: IVP; Site: left antecubital; ll3 21:07 Follow up: Response: No adverse reaction ll3 20:12 Drug: NS 0.9% 1000 ml Route: IV; Rate: 1 bolus; Site: left antecubital; ll3 22:00 Follow up: Response: No adverse reaction; IV Status: Completed infusion; IV Intake: ll3 1000ml 20:13 Not Given (Patient Refused): Pepcid (famotidine) 20 mg IVP once; dilute with 10 mL 0.9% ll3 NaCl; give over 2 minutes 20:13 Not Given (Patient Refused): Zofran (Ondansetron) 4 mg IVP once; over 2 minutes ll3 21:03 Drug: Dilaudid (HYDROmorphone) 1 mg Route: IVP; Site: left antecubital; ll3 21:28 Follow up: Response: No adverse reaction ll3 21:28 Drug: NS 0.9% 1000 ml Route: IV; Rate: 125 ml/hr; Site: left antecubital; ll3 Disposition Summary: 02/01/22 19:00 Hospitalization Ordered Hospitalization Status: Observation cameron Provider: Ronaldo Guaman cha Condition: Fair cameron Problem: new cameron Symptoms: have improved cameron Bed/Room Type: Standard [facility] Location: [facility] ER HOLD(02/01/22 19:38) Room Assignment: ERHOLD-(02/01/22 19:38) Diagnosis - Abdominal tenderness cameron - Vomiting cameron Forms: - Medication Reconciliation Form cameron - SBAR form cameron Signatures: Dispatcher [employer] EDMS Leydi Krishnamurthy RN RN dw Anderson, Corey, MD MD cha Williams, Irene, RN RN iw Roszak, Josh, PA PA [id number] Ladarius Gale RN RN ll3 Padmaja Lora RN RN segal Corrections: (The following items were deleted from the chart) 19:07 18:49 Abdomen Pelvis W Con+CT.RAD.BRZ ordered. EDCT EDCT 19:38 19:00 Telemetry/MedSurg (observation) formerly [facility] 19:38 19:00 formerly [facility]
[2022-02-01] MEDS ORDERED: NA CHLORIDE 0.9% 1,000 ML ONE ×2 (19:14→21:29)
[2022-02-01] MEDS ORDERED: PANTOPRAZOLE 40 MG INJ ONE (19:14)
[2022-02-01 19:32] LABS: Bilirubin Total 0.4 mg/dL (0.2-1.0); Potassium 3.7 mmol/L (3.5-5.1); Protein, Total 7.3 g/dL (6.4-8.2)
[2022-02-01 19:53] LABS: Absolute Lymphocytes (CBC) 2.4 K/uL (0.7-4.9); Lymphocytes % 27.7 % (15.3-44.8); MPV 8.6 fL (7.6-11.3); RBC Red Blood Cell Count 5.38 M/uL (4.33-5.43)
--- NOTE | 2022-02-01 19:53 | RAD REPORT ---
EXAM DESCRIPTION: US - Abdomen Exam Limited - 02/01/2022 7:46 pm CLINICAL HISTORY: ABD PAIN COMPARISON: No comparisons FINDINGS: The gallbladder demonstrates no gallstones. No pericholecystic fluid or gallbladder wall t hickening. The common bile duct is normal measuring 3 mm. The liver demonstrates no findings of intrahepatic biliary dilatation. IMPRESSION: Unremarkable examination.
[2022-02-01 20:27] LABS: Urine Blood Negative (Negative); Urine Glucose Negative (Negative); Urine Protein Negative (Negative); Urine Specific Gravity >=1.030 (1.005-1.030)
[2022-02-01] MEDS ORDERED: SODIUM CHLORIDE 0.9% 10ML INJ IV PRN (20:44)
[2022-02-01] MEDS ORDERED: ACETAMINOPHEN 500 MG TAB PO PRN (20:44)
[2022-02-01 20:48] LABS: Barbiturates NEGATIVE (NEGATIVE); Benzodiazepines NEGATIVE (NEGATIVE); Cocaine NEGATIVE (NEGATIVE); METHAMPHETAM NEGATIVE (NEGATIVE); Methadone NEGATIVE (NEGATIVE); Opiates NEGATIVE (NEGATIVE); Phencyclidine NEGATIVE (NEGATIVE); THC Cannibis NEGATIVE (NEGATIVE)
--- NOTE | 2022-02-01 20:53 | RAD REPORT ---
EXAM DESCRIPTION: CT - Abdomen Pelvis Wo Contrast - 02/01/2022 8:43 pm CLINICAL HISTORY: Abdominal pain. Abdominal pain, acute, nonlocalized COMPARISON: Abdomen Pelvis Wo Contrast dated 02/01/2022 TECHNIQUE: CT imaging of the abdomen and pelvis was performed without contrast. Solid organ and vasc ular assessment is limited due to lack of IV contrast. All CT scans are performed using dose optimization technique as appropriate and may include automated exposure control or mA/KV adjustment according to patient size. FINDINGS: The lower lung hernandez are clear. The liver, spleen, pancreas, adrenal glands and kidneys are within normal limits for a limited non-co ntrast examination. No bowel obstruction, free air, free fluid or abscess. The appendix is normal. The osseous structures are within normal limits. IMPRESSION: No acute intra-abdominal or pelvic findings. A limited non-contrast examination was performed as detailed.
[2022-02-01] MEDS: NA CHLORIDE 0.9% 1,000 ML IV SCH (21:28)
[2022-02-02] MEDS: PIPER TAZO 3.375 GM in NA CHLORIDE 0.9% 100 ML IV SCH ×2 (01:00→09:00)
[2022-02-02] MEDS ORDERED: HYDROMORPHONE HCL 1 MG/ML INJ ONE (02:12)
[2022-02-02] MEDS: HYDROMORPHONE HCL 1 MG/ML INJ IV SCH ×2 (02:20→06:00)
[2022-02-02] MEDS: ONDANSETRON 4 MG/2 ML VIAL IV PRN ×2 (02:20→06:17)
[2022-02-02] MEDS ORDERED: ONDANSETRON 4 MG/2 ML VIAL ONE ×2 (02:27→06:12)
[2022-02-02 03:16] VITALS: BMI 31.3
[2022-02-02 03:39] LABS: Absolute Lymphocytes (CBC) 2.5 K/uL (0.7-4.9); Hematocrit 42.4 % (39.6-49.0); Lymphocytes % 34.1 % (15.3-44.8); MPV 8.7 fL (7.6-11.3); RBC Red Blood Cell Count 4.98 M/uL (4.33-5.43)
[2022-02-02 04:00] LABS: Albumin 3.6 g/dL (3.4-5.0); Bilirubin Direct 0.1 mg/dL (0-0.2); Bilirubin Total 0.5 mg/dL (0.2-1.0); Potassium 3.6 mmol/L (3.5-5.1); Protein, Total 6.7 g/dL (6.4-8.2)
[2022-02-02] MEDS: NA CHLORIDE 0.9% 1,000 ML IV SCH (04:44)
[2022-02-02] MEDS ORDERED: HYDROMORPHONE HCL 0.5 MG/0.5 ML INJ ONE (06:05)
[2022-02-02] MEDS ORDERED: NA CHLORIDE 0.9% 1,000 ML ONE ×2 (06:11→07:02)
[2022-02-02 08:50] VITALS: BP 126/88; TEMP 99.1
[2022-02-02] MEDS ORDERED: PANTOPRAZOLE 40 MG INJ IVP SCH (09:00)
[2022-02-02] MEDS ORDERED: PANTOPRAZOLE 40 MG INJ ONE (09:07)
[2022-02-02] MEDS ORDERED: NA CHLORIDE 0.9% 100 ML IV ONE (09:07)
[2022-02-02] MEDS ORDERED: PIPERACIL/TAZO 3.375 GM VIAL IV ONE (09:07)
--- NOTE | 2022-02-02 10:19 | EKG ---
Test Date: 2022-02-01 Test Time: 21:23:22 Mandarin Chinese Teacher: LL MEASUREMENT RESULTS: Intervals: Rate: 54 MT: 202 QRSD: 100 QT: 394 QTc: 373 [place]: P: 42 MT: 202 QRS: 43 T: 23 INTERPRETIVE STATEMENTS: Sinus bradycardia Nonspecific T wave abnormality Abnormal ECG No previous ECG available for comparison Electronically Signed On 02-02-22 10:17:26 CDT by David Melgar
--- NOTE | 2022-02-02 13:25 | P.CNS ---
Date of Consult: 02/02/22 PC: This 36-year-old male presented to the emergency room twice yesterday with abdominal pain for diagnosis and treatment. HPC: Patient has been experiencing some abdominal pain described as very very severe all over his abdomen and he came to the emergency room for evaluation and treatment. CT scan and lab work etc. were all essentially negative. The patient thought that his pain had resolved and he was discharged. The patient went and ate at [facility] had chicken fried steak and pancakes. Shortly thereafter his pain intensified and he came back to the emergency room once again with severe abdominal pain. PSHx: Negative PMHx: Negative Social Hx: Allergic to aspirin ibuprofen sodium bicarbonate iodine. Sys R: No cough, wheeze, shortness of breath. No chest pain or palpitations. No urinary complaints. 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 O/E: Awake alert vital signs are stable sitting up at the edge of the bed in no distress HEENT: Not jaundiced Chest: Chest movement equal bilaterally Abd: Soft nontender no guarding or rebound [place]: Intact Data: CT scan negative, no lab abnormalities Impression: Nonsurgical abdomen Plan: This patient does not require surgical intervention at this time. He says he feels much better today after receiving some antibiotics and some IV fluids. He is asking for food at the current time. He is anxious to be discharged. Patient may be discharged today. He can follow-up with my office tomorrow so that we can write some notes for work for him. Should he have any questions or problems or recurrence of his pain, he is to return to the emergency room, or contact me.
[2022-02-02 16:04] VITALS: O2SAT 97
== END 2022-02-02 15:00 | disposition home or self-care (01) | DRG 392 ==
LOC: ER 18:08 → ERHOLD 20:09 → OBSVTOIN 21:30 → ERHOLD 02-02 06:28
PROVIDERS: ADMIT Surgery; ATTEND Surgery
DX: R10.9 Unspecified abdominal pain (principal); R11.10 Vomiting, unspecified; Z20.822 Contact with and (suspected) exposure to COVID-19
CPT/HCPCS: 36415; 74176; 76705; 80048; 80053; 80076; 80307; 81003; 83605; 83690; 85025; 93005; 99285; C9113; G0378; J1170; J2405; J2543; J7030; U0003

== ENCOUNTER 2024-11-04 13:22 | Emergency (ER) | payer BC ==
--- NOTE | 2024-11-04 14:16 | EDPHYS ---
Physician Documentation [facility] Name: Vladimir Matthews Age: 39 yrs Sex: Male : 1985 Arrival Date: 11/04/2024 Time: 13:22 Bed IW3 Private MD: ED Physician Jagdish Long HPI: 11/04 14:46 This 39 yrs old Male presents to ER via Ambulatory with complaints of Knee sb4 Pain - Left. 14:46 Patient states that he has had left knee pain for quite some time now. He saw his PCP a sb4 while back and was told he might have rheumatoid arthritis and was referred to a specialist. He states that he never followed up because his pain went away. However, 2 nights ago he aggravated it and it is causing him pain again. He states that he cannot take any NSAIDs due to an allergy so he has only been taking Benadryl at night to help him sleep. Historical: - Allergies: 14:03 Advil; ss 14:03 Katie-[place]; ss 14:03 Aspirin; ss 14:03 Ibuprofen; ss 14:03 Iodine; ss 14:03 SHELLFISH; ss - Home Meds: 14:03 None [Active]; ss - PMHx: 14:03 None; ss - PSHx: 14:03 Left wrist; ss - Immunization history:: Client reports having NOT received the Covid vaccine. - Infectious Disease History:: Denies. - Social history:: Smoking status: Patient denies any tobacco usage or history of. ROS: 14:46 Constitutional: Negative for fever, chills, and weight loss, sb4 14:46 MS/extremity: Positive for pain, of the left knee, 14:46 All other systems are negative, Exam: 14:46 Constitutional: This is a well developed, well nourished patient who is awake, alert, sb4 and in no acute distress. Head/Face: Normocephalic, atraumatic. Eyes: Extra-ocular motions intact. Periorbital areas with no swelling, redness, or edema. ENT: Mucous membranes moist. Respiratory: No increased work of breathing, no retractions or nasal flaring. Skin: Warm, dry with normal turgor. Normal color with no rashes, no lesions, and no evidence of cellulitis. 14:46 Musculoskeletal/extremity: Joints: the left knee displays painful range of motion, no swelling, tenderness, erythema, or warmth, Vital Signs: 14:01 BP 147 / 97; Pulse 96; Resp 16; Temp 98.5(O); Pulse Ox 100% on R/A; Weight 95.25 kg; ss Height 5 ft. 7 in. ; Pain 8/10; 14:01 Body Mass Index 32.89 (95.25 kg, 170.18 cm) ss 14:01 Pain Scale: Adult ss MDM: 13:50 Medical Screening Exam initiated sb4 14:46 Data reviewed: vital signs, nurses notes, and as a result, I will discharge patient. sb4 Counseling: I had a detailed discussion with the patient and/or guardian regarding the historical points, exam findings, and any diagnostic results supporting the discharge/admit diagnosis, the need for outpatient follow up, a orthopedic surgeon, to return to the emergency department if symptoms worsen or persist or if there are any questions or concerns that arise at home. Administered Medications: No medications were administered Disposition: 11/05 09:05 Co-signature as Attending Physician, Jagdish Long MD I reviewed the patient's care rn provided by the Advanced Practice Provider and agree with the diagnosis and treatment plan. Disposition Summary: 11/04/24 14:15 Discharge Ordered Notes: Location: Home sb4 Problem: an ongoing problem sb4 Symptoms: are unchanged sb4 Condition: Stable sb4 Diagnosis - Pain in left knee sb4 Followup: sb4 - With: Pablo Ham MD - When: 1 week - Reason: Recheck today's complaints, Re-evaluation by your physician Discharge Instructions: - Discharge Summary Sheet sb4 - Knee Injection sb4 - Acute Knee Pain, Adult sb4 Forms: - Patient Portal Instructions sb4 - Leadership Thank You Letter sb4 Prescriptions: - Prednisone 20 mg Oral Tablet - take 2 tablets ORAL route once daily for 5 days; 10 tablet; Refills: 0, Product sb4 Selection Permitted Signatures: Jagdish Long MD MD rn Blanchard, Shelby, RN RN ss Brown, Sophia, PA-C PA-C sb4
--- NOTE | 2024-11-04 14:16 | ER ---
Nurse's Notes [facility] Name: Vladimir Matthews Age: 39 yrs Sex: Male : 1985 Arrival Date: 11/04/2024 Time: 13:22 Bed IW3 Private MD: Diagnosis: Pain in left knee Presentation: 11/04 14:01 Chief complaint: Patient states: L knee pain since Tuesday. Pt was hoping of have an MRI ss not XRAY. Coronavirus screen: Client denies travel out of the [place] in the last 14 days. Ebola Screen: Patient denies exposure to infectious person. Patient denies travel to an Ebola-affected area in the 21 days before illness onset. Initial Sepsis Screen: Does the patient meet any 2 criteria? No. Patient's initial sepsis screen is negative. Does the patient have a suspected source of infection? No. Patient's initial sepsis screen is negative. Risk Assessment: Do you want to hurt yourself or someone else? Patient reports no desire to harm self or others. Onset of symptoms was November 02, 2024. 14:01 Method Of Arrival: Ambulatory ss 14:01 Acuity: ASHLEY 5 ss Historical: - Allergies: 14:03 Advil; ss 14:03 Katie-[place]; ss 14:03 Aspirin; ss 14:03 Ibuprofen; ss 14:03 Iodine; ss 14:03 SHELLFISH; ss - Home Meds: 14:03 None [Active]; ss - PMHx: 14:03 None; ss - PSHx: 14:03 Left wrist; ss - Immunization history:: Client reports having NOT received the Covid vaccine. - Infectious Disease History:: Denies. - Social history:: Smoking status: Patient denies any tobacco usage or history of. Vital Signs: 14:01 BP 147 / 97; Pulse 96; Resp 16; Temp 98.5(O); Pulse Ox 100% on R/A; Weight 95.25 kg; ss Height 5 ft. 7 in. ; Pain 8/10; 14:01 Body Mass Index 32.89 (95.25 kg, 170.18 cm) ss 14:01 Pain Scale: Adult ss ED Course: 13:25 Patient arrived in ED. im 13:27 Nisha Larkin PA-C is PHCP. sb4 13:27 Jagdish Long MD is Attending Physician. sb4 14:03 Triage completed. ss 14:03 Arm band placed on right wrist. ss 14:15 Pablo Ham MD is Referral Physician. sb4 14:27 No provider procedures requiring assistance completed. Patient did not have IV access ss during this emergency room visit. Administered Medications: No medications were administered Outcome: 14:15 Discharge ordered by MD. sb4 14:27 Discharged to home ambulatory, 14:27 Condition: good 14:27 Discharge instructions given to patient, Instructed on discharge instructions, follow up and referral plans. medication usage, Demonstrated understanding of instructions, follow-up care, medications, Prescriptions given X 1, 14:27 Patient left the ED. ss Signatures: Dorcas Ortega RN RN Nisha Larkin PATristanC PA-C sb4 Ghazal Victoria
[2024-11-04 14:52] VITALS: BP 147/97; TEMP 98.5; O2SAT 100
== END 2024-11-04 14:27 | disposition home or self-care (01) ==
LOC: ER 13:22
DX: M25.562 Pain in left knee (principal)
CPT/HCPCS: 99283